=== PATIENT | female | born 1985 | race American Indian/Alaskan Native ===

== ENCOUNTER 2018-11-18 20:43 | Outpatient (CLI) | payer BC, MEDICAID ==
[2018-11-18 21:29] VITALS: BP 123/67
[2018-11-18] MEDS ORDERED: LACTATED RINGERS 500 ML IV ONE (21:30)
--- NOTE | 2018-11-18 22:57 | Ultrasound Report ---
PROCEDURE: US OB LIMITED TECHNIQUE: PROCEDURE: US OB LIMITED TECHNIQUE: Real-time limited sonographic examination was performed for evaluation of for each fetus with image documentation (1 or more fetuses). HISTORY: rule out placenta abruption COMPARISONS: None . FINDINGS: FETUS IUP: Single living intrauterine . Position: Cephalic . Placental position: Anterior with grade 1 maturity, without previa . There is no evidence of abrupti on Heart rate and rhythm: 156 bpm BPM, Regular . IMPRESSION: No evidence of placental abruption This document is electronically signed by Cresencio Amado MD., November 18 2018 10:55:23 PM ET
== END 2018-11-18 22:47 | disposition home or self-care (01) ==
LOC: EDSTATUS 20:55 → TRG 20:59
PROVIDERS: ATTEND Obstetrics & Gynecology
DX: O47.02 False labor before 37 completed weeks of gestation, second trimester (principal); Z3A.24 24 weeks gestation of pregnancy
CPT/HCPCS: 59025; 76815

== ENCOUNTER 2019-02-28 11:31 | Inpatient (IN) | payer BC, MEDICAID ==
[2019-02-28] MEDS ORDERED: BRETHINE SUB-Q PRN (13:50)
[2019-02-28] MEDS ORDERED: XYLOCAINE 2% INFILTRATI ONE (13:50)
[2019-02-28] MEDS ORDERED: ZOFRAN IV PRN (13:50)
[2019-02-28] MEDS ORDERED: MINERAL OIL PO PRN (13:50)
[2019-02-28] MEDS ORDERED: SUBLIMAZE IV PRN (13:50)
[2019-02-28] MEDS ORDERED: STADOL IV PRN (13:50)
--- NOTE | 2019-02-28 13:55 | History and Physical Report ---
History of Present Illness Date of examination: 02/28/19 (active labor @ term) History of present illness: EDC Confirmation: 03/05/2019 Gestational Age: 8 3/7 weeks Past History : 5 Term Births: 2 Premature Births: 0 Living Children: 2 Para: 2 Mult. Births: 0 Prev : 0 Aborta: 2 Elect. Ab: 1 Spont. Ab: 1 Ectopics: 0 # 1 Delivery date: 09/20/2007 Weeks Gestation: 40 labor: no Delivery type: Hours of labor: 24 Anesthesia type: none Delivery location: [facility] Sex: Male weight: 9 lbs Name: Ginny # 2 Delivery date: 07/09/2013 Weeks Gestation: 40 labor: no Delivery type: Hours of labor: 24 Anesthesia type: none Delivery location: [facility] Sex: Male weight: 9-15 Name: Jaret # 3 Delivery date: 07/15/2014 Weeks Gestation: 5 Delivery type: SAB Comments: No D&C # 4 Delivery date: 01/07/2015 Delivery type: EAB Past Medical History: Reviewed history from 07/03/2014 and no changes required: Negative Past Medical History Past Surgical History: Reviewed history from 03/16/2015 and no changes required: D&C: (01/07/2015) Family History Summary: Reviewed history and no changes required: 07/29/2018 Mother (biol.) - Has Family History of Hypertension - Entered On: 05/07/2018 Mother (biol.) - Has No Family History of Breast Cancer - Entered On: 05/07/2018 Mother (biol.) - Has No Family History of Colon Cancer - Entered On: 05/07/2018 Mother (biol.) - Has No Family History of Ovarvian Cancer - Entered On: 05/07/2018 Social History: Patient is [employer] Past Medical History Social Hx: Patient is [employer] Genetic History Congenital Heart Defect: Mom: no Dad: no Lavern Disease: Mom: no Dad: no Thalassemia Mom: no Dad: no Neural Tube Defect Mom: no Dad: no Down's Syndrome Mom: no Dad: no Nico-Sachs Mom: no Dad: no Sickle Cell Disease/Trait Mom: no Dad: no Hemophilia Mom: no Dad: no Muscular Dystrophy Mom: no Dad: no Cystic Fibrosis Mom: no Dad: no [place] Chorea Mom: no Dad: no Mental Retardation Mom: no Dad: no Fragile X Mom: no Dad: no Other Genetic/Chromosomal Disorder Mom: no Dad: no Child w/other defect Mom: no Dad: no Enviromental Exposures Xray Exposure: no Medication, drug, or alcohol use since LMP: no Chemical/Other Exposure: no Exposure to Cat Liter: no Hx of Parvovirus (Fifth Disease): no Active Medications (reviewed today): VITAMIN PLUS LOW IRON 27-1 MG ORAL TABLET ( VIT-FE FUMARATE-FA) 1 po q day as directed Current Allergies (reviewed today): No known allergies Past History - Obstetrical History Expected Date of Delivery: 03/05/19 Actual Gestation: 39 Week(s) 2 Day(s) : 5 Para: 2 Hx # Term Pregnancies: 2 Number of Pregnancies: 0 Spontaneous Abortions: 1 Induced : 1 Number of Living Children: 2 Medications and Allergies Allergies Allergy/AdvReac Type Severity Reaction Status Date / Time No Known Allergies Allergy Verified 07/13/18 13:32 Home Medications Medication Instructions Recorded Confirmed Last Taken Type Vitamin Tablet 1 tab PO DAILY 11/18/18 11/18/18 Unknown History - Vital Signs Vital signs: Vital Signs Temp Resp 97.1 F L 20 02/28/19 11:43 02/28/19 11:43 Temp Pulse Resp BP Pulse Ox 97.1 F L 84 20 133/69 02/28/19 11:43 02/28/19 11:46 02/28/19 11:43 02/28/19 11:46 - Physical Exam Breasts: Positive: deferred Cardiovascular: Regular rate, Normal S1, Normal S2 Lungs: Positive: Normal air movement Abdomen: Positive: normal appearance, soft, normal bowel sounds. Negative: distention, tenderness Genitourinary (Female): Positive: normal external genitalia Vulva: both: normal Vagina: Positive: normal moisture. Negative: discharge Cervix: Negative: lesion, discharge Uterus: Positive: normal size, normal contour Adnexa: both: normal Anus/Rectum: Positive: normal perianal skin, heme negative. Negative: rectal mass, hemorrhoids Extremities: Positive: normal Deep Tendon Reflex Grade: Normal +2 - Obstetrical FHR: category 1 Uterine Contraction Monitor Mode: External Cervical Dilatation: 6.5 (bolusing for epidural) Cervical Effacement Percentage: 90 station: -1 Uterine Contraction Pattern: Regular Uterine Tone Measurement Phase: Resting Uterine Contraction Intensity: Moderate Results Result Diagrams: 02/28/19 14:15 All other labs normal. GBS NEGATIVE HBsAg Screen Negative Negative *1 RPR Non Reactive Non Reactive *2 Rubella Antibodies, IgG 10.30 index Immune >0.99 *3 Non-immune <0.90 Equivocal 0.90 - 0.99 Immune >0.99 ABO Grouping O *4 Rh Factor Positive *5 Please note: Prior records for this patient's ABO / Rh type are not available for additional verification. Antibody Screen See Final Results Negative *6 Tests: (2) Ab Scr+Antibody ID ([id number]) ! Antibody Screen Negative Negative *7 ! Antibody Id. #1 TNP (X) *8 Test not performed ! [place] Titer #1 <No Reported Value> *9 ! Antibody Id. #2 <No Reported Value> *10 ! [place] Titer #2 <No Reported Value> *11 Tests: (3) Profile I ([id number]) WBC 5.7 x10E3/uL 3.4-10.8 *12 RBC 4.07 x10E6/uL 3.77-5.28 *13 Hemoglobin 12.8 g/dL 11.1-15.9 *14 Hematocrit 38.5 % 34.0-46.6 *15 MCV 95 fL 79-97 *16 MCH 31.4 pg 26.6-33.0 *17 MCHC 33.2 g/dL 31.5-35.7 *18 RDW 14.0 % 12.3-15.4 *19 Platelets 157 x10E3/uL 150-379 *20 Neutrophils 55 % Not Estab. *21 Lymphs 26 % Not Estab. *22 Monocytes 10 % Not Estab. *23 Eos 8 % Not Estab. *24 Basos 1 % Not Estab. *25 ! Immature Cells <No Reported Value> *26 Neutrophils (Absolute) 3.1 x10E3/uL 1.4-7.0 *27 Lymphs (Absolute) 1.5 x10E3/uL 0.7-3.1 *28 Monocytes(Absolute) 0.6 x10E3/uL 0.1-0.9 *29 Eos (Absolute) [H] 0.5 x10E3/uL 0.0-0.4 *30 Baso (Absolute) 0.1 x10E3/uL 0.0-0.2 *31 ! Immature Granulocytes <No Reported Value> *32 ! Immature Grans (Abs) <No Reported Value> *33 ! NRBC <No Reported Value> *34 Hematology Comments: Note: *35 Manual differential was performed. Tests: (4) Panel 352410 ([id number]) HIV Screen 4th Generation wRfx Non Reactive Non Reactive *36 Tests: (5) HCV Ab w/Rflx to Verification ([id number]) ! HCV Ab <0.1 s/co ratio 0.0-0.9 *37 Tests: (6) Comment: ([id number]) ! Comment: SPR[facility] *38 Non reactive HCV antibody screen is consistent with no HCV infection, unless recent infection is suspected or other evidence exists to indicate HCV infection. Tests: (7) Urine Culture, Routine ([id number]) Urine Culture, Routine Final report *39 Tests: (8) Result ([id number]) ! Result 1 No growth *40 Assessment and Plan 33yo @ 39 weeks in active labor GBS negative Orders in EMR Anticipate delivery
[2019-02-28] MEDS: LACTATED RINGERS 1,000 ML IV SCH ×3 (14:28→17:39)
[2019-02-28 14:59] LABS: Hematocrit 41.5 % (30.3-42.9); Hemoglobin 14.5 gm/dl (10.1-14.3); Mean Corpuscular HGB Conc 35 % (30-34); Mean Corpuscular Volume 97 fl (79-97); Platelet Count 126 K/mm3 (140-440); Red Blood Count 4.31 M/mm3 (3.65-5.03); Red Cell Distribution Width 14.5 % (13.2-15.2)
[2019-02-28] MEDS ORDERED: NARCAN 2 MG/2 ML IV PRN (15:25)
--- NOTE | 2019-02-28 15:27 | Anesthesia Consultation ---
Anesthesia Consult and Med Hx Date of service: 02/28/19 - Airway Anesthetic Teeth Evaluation: Good ROM Head & Neck: Adequate Mental/Hyoid Distance: Adequate Mallampati Class: Class II Intubation Access Assessment: Probably Good - Pulmonary Exam CTA: Yes - Cardiac Exam Cardiac Exam: RRR - Pre-Operative Health Status ASA Pre-Surgery Classification: ASA2 Proposed Anesthetic Plan: Epidural - Pulmonary Hx Smoking: No Hx Asthma: No Hx Respiratory Symptoms: No SOB: No COPD: No Home Oxygen Therapy: No Hx Pneumonia: No Hx Sleep Apnea: No - Cardiovascular System Hx Hypertension: No Hx Coronary Artery Disease: No Hx Heart Attack/AMI: No Hx Angina: No Hx Percutaneous Transluminal Coronary Angioplasty (PTCA): No Hx Cardia Arrhythmia: No Hx Pacemaker: No Hx Internal Defibrillator: No Hx Valvular Heart Disease: No Hx Heart Murmur: No Hx Peripheral Vascular Disease: No - Central Nervous System Hx Neuromuscular Disorder: No Hx Seizures: No CVA: No Hx Back Pain: Yes Hx Psychiatric Problems: No - Gastrointestinal Hx Ulcer: No Hx Gastroesophageal Reflux Disease: Yes - Endocrine Hx Renal Disease: No Hx End Stage Renal Disease: No Hx Cirrhosis: No Hx Liver Disease: No Hx Insulin Dependent Diabetes: No Hx Non-Insulin Dependent Diabetes: No Hx Thyroid Disease: No Hx Hypothyroidism: No Hx Hyperthyroidism: No - Hematic Hx Anemia: No Hx Sickle Cell Disease: No - Other Systems Hx Alcohol Use: No Hx Substance Use: No Hx Cancer: No Hx Obesity: No
[2019-02-28] MEDS ORDERED: fentaNYL-BUPIV 2 MCG/ML-0.125% 200 MCG/100 ML BAG EPIDURAL SCH (16:00)
--- NOTE | 2019-02-28 16:23 | Progress Note ---
Assessment and Plan Pt resting Comfortable with epidural SVE 8,90, -1 Pitocin started. Subjective - Subjective Date of service: 02/28/19 (comfortable with epidural) Interval history: EDC Confirmation: 03/05/2019 Gestational Age: 8 3/7 weeks Past History : 5 Term Births: 2 Premature Births: 0 Living Children: 2 Para: 2 Mult. Births: 0 Prev : 0 Aborta: 2 Elect. Ab: 1 Spont. Ab: 1 Ectopics: 0 # 1 Delivery date: 09/20/2007 Weeks Gestation: 40 labor: no Delivery type: Hours of labor: 24 Anesthesia type: none Delivery location: [facility] Sex: Male weight: 9 lbs Name: Ginny # 2 Delivery date: 07/09/2013 Weeks Gestation: 40 labor: no Delivery type: Hours of labor: 24 Anesthesia type: none Delivery location: [facility] Sex: Male weight: 9-15 Name: Jaret # 3 Delivery date: 07/15/2014 Weeks Gestation: 5 Delivery type: SAB Comments: No D&C # 4 Delivery date: 01/07/2015 Delivery type: EAB Past Medical History: Reviewed history from 07/03/2014 and no changes required: Negative Past Medical History Past Surgical History: Reviewed history from 03/16/2015 and no changes required: D&C: (01/07/2015) Family History Summary: Reviewed history and no changes required: 07/29/2018 Mother (biol.) - Has Family History of Hypertension - Entered On: 05/07/2018 Mother (biol.) - Has No Family History of Breast Cancer - Entered On: 05/07/2018 Mother (biol.) - Has No Family History of Colon Cancer - Entered On: 05/07/2018 Mother (biol.) - Has No Family History of Ovarvian Cancer - Entered On: 05/07/2018 Social History: Patient is [employer] Past Medical History Social Hx: Patient is [employer] Genetic History Congenital Heart Defect: Mom: no Dad: no Lavern Disease: Mom: no Dad: no Thalassemia Mom: no Dad: no Neural Tube Defect Mom: no Dad: no Down's Syndrome Mom: no Dad: no Nico-Sachs Mom: no Dad: no Sickle Cell Disease/Trait Mom: no Dad: no Hemophilia Mom: no Dad: no Muscular Dystrophy Mom: no Dad: no Cystic Fibrosis Mom: no Dad: no [place] Chorea Mom: no Dad: no Mental Retardation Mom: no Dad: no Fragile X Mom: no Dad: no Other Genetic/Chromosomal Disorder Mom: no Dad: no Child w/other defect Mom: no Dad: no Enviromental Exposures Xray Exposure: no Medication, drug, or alcohol use since LMP: no Chemical/Other Exposure: no Exposure to Cat Liter: no Hx of Parvovirus (Fifth Disease): no Active Medications (reviewed today): VITAMIN PLUS LOW IRON 27-1 MG ORAL TABLET ( VIT-FE FUMARATE-FA) 1 po q day as directed Current Allergies (reviewed today): No known allergies Patient reports: movement normal Objective - Vital Signs Vital Signs: Vital Signs - 12hr 02/28/19 02/28/19 02/28/19 11:43 11:46 13:59 Temperature 97.1 F L Pulse Rate 84 79 Respiratory 20 Rate Blood Pressure 133/69 151/82 O2 Sat by Pulse Oximetry 02/28/19 02/28/19 02/28/19 14:50 14:51 15:22 Temperature 97.6 F Pulse Rate 75 78 86 Respiratory 18 Rate Blood Pressure 139/77 134/76 132/70 O2 Sat by Pulse Oximetry 02/28/19 02/28/19 02/28/19 15:41 15:46 15:47 Temperature Pulse Rate 87 85 80 Respiratory Rate Blood Pressure 129/67 O2 Sat by Pulse 99 99 Oximetry 02/28/19 02/28/19 02/28/19 15:52 15:58 16:02 Temperature Pulse Rate 77 85 87 Respiratory Rate Blood Pressure 127/79 127/67 123/63 O2 Sat by Pulse 98 Oximetry 02/28/19 02/28/19 02/28/19 16:07 16:09 16:12 Temperature Pulse Rate 73 85 94 H Respiratory Rate Blood Pressure 131/70 O2 Sat by Pulse 96 99 Oximetry 02/28/19 02/28/19 16:13 16:17 Temperature Pulse Rate 95 H 95 H Respiratory Rate Blood Pressure 131/68 135/75 O2 Sat by Pulse 99 Oximetry - Exam Breasts: deferred Cardiovascular: Regular rate Lungs: Normal air movement Abdomen: Present: normal appearance, soft. Absent: distention, tenderness Uterus: Present: normal FHR: auscultation normal, category 1 Uterine Contraction Monitor Mode: Internal Cervical Dilatation: 8 (SROM bloody) Cervical Effacement Percentage: 90 (ISE/IUPC placed) station: 0 Uterine Contraction Pattern: Regular Uterine Tone Measurement Phase: Resting Uterine Contraction Intensity: Moderate Extremities: normal Deep Tendon Reflex Grade: Normal +2 - Labs Labs: Abnormal Labs 02/28/19 14:15 Hgb 14.5 H MCH 34 H MCHC 35 H Plt Count 126 L Laboratory Results - last 24 hr 02/28/19 02/28/19 14:15 14:15 WBC 7.7 RBC 4.31 Hgb 14.5 H Hct 41.5 MCV 97 MCH 34 H MCHC 35 H RDW 14.5 Plt Count 126 L Blood Type O POSITIVE
[2019-02-28] MEDS ORDERED: PITOCin/NS 30 UNIT/500ML 30 UNITS/500 ML BAG IV SCH ×2 (17:05→18:00)
--- NOTE | 2019-02-28 18:27 | Event Note ---
Date: 02/28/19 (deep variable X 1 resolved ) Variable noted SVE 9,100,0 Position chg to semi-fowlers Anticipate delivery
[2019-02-28] MEDS: PITOCin/NS 20 UNIT/1000ML DRIP 20 UNITS/1,000 ML BAG IV SCH ×2 (18:47→19:59)
[2019-02-28] MEDS ORDERED: LANSINOH TP PRN (19:09)
[2019-02-28] MEDS ORDERED: BENADRYL PO PRN (19:09)
[2019-02-28] MEDS ORDERED: TUCKS PAD TP PRN (19:09)
[2019-02-28] MEDS ORDERED: TYLENOL PO PRN (19:09)
[2019-02-28] MEDS ORDERED: DULCOLAX PR PRN (19:09)
[2019-02-28] MEDS ORDERED: PHENERGAN PO PRN (19:09)
[2019-02-28] MEDS ORDERED: MILK OF MAGNESIA PO PRN (19:09)
--- NOTE | 2019-02-28 19:22 | Procedure Note ---
OB Delivery Note - Delivery Date of Delivery: 02/28/19 Disability Manager: ELIZABETH HARDIN Estimated blood loss: 300cc - Vaginal Delivery presentation: vertex Delivery position: OA Intrapartum events: meconium Delivery induction: none Delivery augmentation: pitocin Delivery monitor: internal FHT, internal uterine Route of delivery: Delivery placenta: expressed, uterine exploration Delivery cord: 3 umbilical vessels Episiotomy: none Delivery laceration: none Anesthesia: epidural Delivery comments: live born male over intact perineum Thick terminal meconium covering head and face, not noted @ time of ROM. NICU called to room for assessment. Baby on mom's abdomen until time of NICU arrival. Cord blood obtained. Placenta manually removed, uterine fibroid palpated. Complete and intact, 3 vessel cord. placenta to pathology, appears calcified. Pit IVFs 7/9, EBL 300, Wgt 7-7 Mom and baby remain LDR stable. - A at 1 minute: 7 at 5 minutes: 9 Infant Gender: Male (wgt 7-7)
[2019-02-28] MEDS ORDERED: SODIUM CHLORIDE FLUSH SYRINGE 10 ML IV SCH (20:00)
[2019-02-28] MEDS ORDERED: IBUPROFEN PO SCH (20:00)
[2019-02-28] MEDS ORDERED: METHERGINE PO SCH (22:00)
[2019-03-01] MEDS: IBUPROFEN PO SCH ×3 (00:15→17:20)
[2019-03-01] MEDS: METHERGINE PO SCH ×3 (00:15→17:20)
[2019-03-01] MEDS ORDERED: BOOSTRIX IM ONE (06:00)
--- NOTE | 2019-03-01 08:40 | Progress Note ---
Assessment and Plan Pt doing well, no complaints. desires d/c home @ 24h miguel if possible, She is anxious to go home. Will wait for H&H to be collected and resulted ( I called lab and requested they come draw ordered H&H ordered for 0710). lochia scant, fundus firm, VSSAF. - Patient Problems (1) Spontaneous vaginal delivery Current Visit: Yes Status: Acute Plan to address problem: Continue pathway anticipate d/c home this evening if cleared for discharge Subjective - Subjective Date of service: 03/01/19 Principal diagnosis: day #1 s/p Patient reports: appetite normal, voiding normally, pain well controlled, ambulating normally, no dizzy ambulation, no nauseated : doing well Objective - Vital Signs Latest vital signs: Vital Signs Temp Pulse Resp BP BP Pulse Ox 03/01/19 04:00 98.6 F 72 18 103/64 02/28/19 21:43 98.0 F 74 18 128/73 99 02/28/19 21:15 83 143/70 02/28/19 20:49 78 136/63 02/28/19 20:34 92 H 147/71 02/28/19 20:24 81 148/70 02/28/19 20:19 90 144/68 02/28/19 20:04 80 144/66 02/28/19 19:50 79 141/74 02/28/19 19:36 81 122/72 02/28/19 19:29 98.6 F 18 02/28/19 19:23 101 H 166/93 02/28/19 19:05 96 H 134/97 02/28/19 18:49 83 156/74 02/28/19 18:28 80 125/68 02/28/19 18:12 82 99 02/28/19 18:07 74 100 02/28/19 18:02 74 100 02/28/19 17:59 78 111/59 02/28/19 17:57 76 99 02/28/19 17:52 72 100 02/28/19 17:47 80 98 02/28/19 17:42 79 99 02/28/19 17:37 78 98 02/28/19 17:32 74 99 02/28/19 17:28 76 133/72 02/28/19 17:27 81 99 02/28/19 17:22 74 100 02/28/19 17:17 71 99 02/28/19 17:12 76 99 02/28/19 17:07 74 98 02/28/19 17:02 71 99 02/28/19 16:58 76 126/76 02/28/19 16:57 72 98 02/28/19 16:52 74 98 02/28/19 16:47 75 98 02/28/19 16:42 73 97 02/28/19 16:41 76 94 02/28/19 16:37 88 100 02/28/19 16:32 87 100 02/28/19 16:27 87 141/74 100 02/28/19 16:22 88 142/78 100 02/28/19 16:17 95 H 135/75 99 02/28/19 16:13 95 H 131/68 02/28/19 16:12 94 H 99 02/28/19 16:09 85 131/70 02/28/19 16:07 73 96 02/28/19 16:02 87 123/63 98 02/28/19 16:00 97.8 F 18 02/28/19 15:58 85 127/67 02/28/19 15:52 77 127/79 02/28/19 15:47 80 129/67 02/28/19 15:46 85 99 02/28/19 15:41 87 99 02/28/19 15:22 86 132/70 02/28/19 14:51 78 134/76 02/28/19 14:50 97.6 F 75 18 139/77 02/28/19 13:59 79 151/82 02/28/19 11:46 84 133/69 02/28/19 11:43 97.1 F L 20 Intake and Output 02/28/19 03/01/19 03/01/19 23:59 07:59 15:59 Intake Total 455.700 Output Total 200 2200 Balance 255.700 -2200 Intake: IV 455.700 Lactated Ringers 1,000 ml 304.167 @ 125 mls/hr IV DIRECT NAHOMI Rx#:[id number] PITOCin/NS 20 UNIT/1000ML 150 DRIP 20 units In 1,000 ml @ 125 mls/hr IV DIRECT NAHOMI Rx#:[id number] PITOCin/NS 30 UNIT/500ML 1.533 30 units In 500 ml @ 4 MILLIUNITS/MIN 4 mls/hr IV Q30MIN [facility] Rx#: [id number] Output: Urine 200 2200 Indwelling Catheter 200 Void 2200 Other: Total, Output Amount 200 500 # Voids Void 1 Estimated Blood Loss 300 - Exam Breasts: Present: normal Cardiovascular: Present: Regular rate Lungs: Present: Clear to auscultation, Normal air movement Abdomen: Present: normal appearance, soft, normal bowel sounds Vulva: both: normal Uterus: Present: normal, firm, fundal height at umbilicus Extremities: Present: normal Deep Tendon Reflex Grade: Normal +2 - Labs Labs: Abnormal lab results 02/28/19 Range/Units 14:15 Hgb 14.5 H (10.1-14.3) gm/dl MCH 34 H (28-32) pg MCHC 35 H (30-34) % Plt Count 126 L (140-440) K/mm3
[2019-03-01 10:21] LABS: Hematocrit 37.9 % (30.3-42.9); Hemoglobin 13.1 gm/dl (10.1-14.3)
--- NOTE | 2019-03-01 15:04 | Discharge Summary ---
Providers - Providers Date of Admission: 02/28/19 15:43 Date of discharge: 03/01/19 (desires d/c home today) Attending physician: BERNICE DUNN Primary care physician: BERNICE DUNN Hospitalization Reason for admission: active labor Delivery: Episiotomy: none Laceration: none Other procedures: none complications: none Discharge diagnosis: IUP at term delivered [place] baby: male Pertinent studies: H&H 13.1/37.9 Hospital course: uncomplicated Condition at discharge: Good Disposition: DC-01 TO HOME OR SELFCARE - Discharge Diagnoses (1) Spontaneous vaginal delivery Status: Acute Plan - Discharge Medications Prescriptions: Lidocain2.5%/Prilocai2.5% [Emla] 5 gm TP ONCE PRN #1 tube PRN Reason: Pain Ibuprofen [Motrin 800 MG tab] 800 mg PO Q8HR PRN #30 tablet PRN Reason: Pain - Provider Discharge Summary Activity: routine, no sex for 6 weeks, no heavy lifting 4 weeks, no strenuous exercise Diet: routine Instructions: routine Additional instructions: [] Smoking cessation referral if applicable(refer to patient education folder for contact #) [] Refer to [facility] Booklet Call your doctor immediately for: * Fever > 100.5 * Heavy vaginal bleeding ( >1 pad per hour) * Severe persistent headache * Shortness of breath * Reddened, hot, painful area to leg or breast * Drainage or odor from incision. * Keep incision clean and dry at all times and follow doctor's instructions regarding bathing/showering - Follow up plan Follow up: BERNICE DUNN MD [Primary Care Provider] - 7 Days (Congratulations! Please call [phone] to schedule your son's circumcision in 1 week and your exam in 4 weeks. Bring EMLA cream to your son's visit and await further instructions. Call for any questions or concerns.)
[2019-03-01] MEDS ORDERED: M-M-R II VACCINE SUB-Q ONE (18:00)
[2019-03-01 20:55] VITALS: BP 115/77
== END 2019-03-01 21:10 | disposition home or self-care (01) | DRG 807 ==
LOC: TRG 11:31 → LD 15:43 → TRG 15:43 → OB 22:23
PROVIDERS: ADMIT Obstetrics & Gynecology; ATTEND Obstetrics & Gynecology
PROC: 10E0XZZ Delivery of Products of Conception, External Approach (ICD-10-PCS; principal; 2019-02-28)
PROC: 10H07YZ Insertion of Other Device into Products of Conception, Via Natural or Artificial Opening (ICD-10-PCS; 2019-02-28)
PROC: 3E0R3BZ Introduction of Anesthetic Agent into Spinal Canal, Percutaneous Approach (ICD-10-PCS; 2019-02-28)
PROC: 00HU33Z Insertion of Infusion Device into Spinal Canal, Percutaneous Approach (ICD-10-PCS; 2019-02-28)
PROC: 3E0234Z Introduction of Serum, Toxoid and Vaccine into Muscle, Percutaneous Approach (ICD-10-PCS; 2019-03-01)
DX: O77.0 Labor and delivery complicated by meconium in amniotic fluid (principal); Z37.0 Single live birth; K21.9 Gastro-esophageal reflux disease without esophagitis; O99.62 Diseases of the digestive system complicating childbirth; Z3A.39 39 weeks gestation of pregnancy; Z82.49 Family history of ischemic heart disease and other diseases of the circulatory system; Z23 Encounter for immunization
CPT/HCPCS: 36415; 85014; 85018; 85027; 86592; 86850; 86900; 86901; 88307; 90471; 90715; G0378; A6250; J2590; J3010; J7120